=== PATIENT | female | born 1950 | race Caucasian/White ===

== ENCOUNTER 2017-11-22 05:36 | Emergency (ER) | payer OTHER ==
[2017-11-22] MEDS: HYDROCODONE/APAP (5/325) TAB PO (07:53)
== END 2017-11-22 09:45 | disposition home or self-care (01) ==
LOC: FTE 05:36
DX: R51 Headache (principal); Z85.22 Personal history of malignant neoplasm of nasal cavities, middle ear, and accessory sinuses
CPT/HCPCS: 70450; 99284-25